=== PATIENT | male | born 1970 | race Asian ===

== ENCOUNTER 2020-06-14 00:12 | Outpatient (CLI) | payer OTHER, SELFPAY ==
[2020-06-14 17:38] LABS: SARS-CoV-2 RNA PCR Negative
== END 2020-06-14 00:13 | disposition home or self-care (01) ==
LOC: ANHCOVIDDT 00:12
PROVIDERS: Family Provider Emergency Medicine; PCP Family Medicine; Visit Provider Internal Medicine Gastroenterology
DX: Z01.812 Encounter for preprocedural laboratory examination (principal); Z20.822 Contact with and (suspected) exposure to COVID-19
CPT/HCPCS: C9803; U0003; U0005

== ENCOUNTER 2020-06-17 00:42 | Day surgery (SDC) | payer OTHER, SELFPAY ==
[2020-06-06 09:08] VITALS: BMI 23.8
[2020-06-17 11:32] VITALS: BP 122/88; PULSE 66; RESP 18; TEMP 36.8; O2SAT 98; BMI 23.1
[2020-06-17] MEDS: LACTATED RINGERS 1,000 ML 150 ML IV CONT (11:51)
--- NOTE | 2020-06-17 12:12 | WPDANESEPPF ---
Anes - Initial Pre Proc Eval Procedure: Operation Date: 06/17/20 12:30 Proposed Procedures p Screening Colonoscopy - Celio Davies DO Date/Time: 06/17/20 12:12 Surgeon: Celio Davies DO Pre Op Diagnosis: neoplasm screening Patient Data Age: 49 Gender: M Height: 1.75 m Weight: 71 kg Last Vital Signs Temp 36.8 C 06/17/20 11:32 Pulse 66 06/17/20 11:32 Resp 18 06/17/20 11:32 BP 122/88 06/17/20 11:32 Pulse Ox 98 06/17/20 11:32 Allergies Allergy/AdvReac Type Severity Reaction Status Date / Time No Known Allergies Allergy Verified 06/17/20 11:31 Home Medications Medication Instructions Recorded Confirmed Type No Home Medications 04/01/20 06/17/20 History Patient hx anesthesia problems: none Family hx anesthesia problems: none PMFSH Past Medical History Medical History (Updated 06/17/20 @ 07:31 by Lj Delgado DO) Hyperlipidemia Family History Family History (System 04/02/20 @ 14:24 by Mee Hilliard) Mother Family history of elevated blood lipids Social History Social History (System 04/02/20 @ 14:24 by Mee Hilliard) Smoking status: Never smoker Alcohol intake: current Drinks per week: 5 Living arrangements: with family Gender identity (if verbalized by the patient): Male Spiritual care concerns: No Anes - Eval Final PreProcedure Day of Procedure 06/17/20 12:12 Patient weight: normal Heart: regular rate and rhythm Lungs: clear to auscultation and normal air movement Airway: Mallampati scale class II Neurological: alert and oriented Last oral intake: >/= 8 hours ASA classification: II Emergent: no Anesthetic plan: proceed Anesthesia type and monitoring: general GIVS and standard monitoring Informed Consent: The patient's anesthetic plan and its attendant risks and benefits were discussed with the patient/family/POA. Questions were solicited and answers provided to the satisfaction of the patient/family/POA.
--- NOTE | 2020-06-17 12:18 | PM.IMHP ---
H&P: HPI History of Present Illness Date/Time: 06/17/20 12:18 Chief Complaint: Reason for visit is colonoscopy. Narrative: Reason for visit is colonoscopy. Impression: Screening colonoscopy. Hyperlipidemia. Recommendation: Colonoscopy. History: This very pleasant gentleman is negative GI review of systems. He is here for screening colonoscopy. Physical examination: General: very pleasant patient in no acute distress. HEENT: Head was normocephalic sclerae is clear mouth without masses neck was supple. Heart: Rate rhythm regular without S3 or S4. Lungs: CTA. Abdomen: Soft with no guarding or rigidity. Bowel sounds were active. Neurologic: Cranial nerves 2 through 12 intact. No focal defects. No clonus. Musculoskeletal system: Revealed no joint tenderness or swelling no muscle atrophy. Extremities: Reveal no significant edema. Skin: Warm and dry with normal turgor. Mental status: intact. Patient is alert and oriented. Review of Systems Review of Systems: All systems reviewed & are unremarkable except as noted in HPI and below PMFSH Past Medical History Medical History (Updated 06/17/20 @ 07:31 by Lj Delgado DO) Hyperlipidemia Family History Family History (System 04/02/20 @ 14:24 by Mee Hilliard) Mother Family history of elevated blood lipids Social History Social History (System 04/02/20 @ 14:24 by Mee Hilliard) Smoking status: Never smoker Alcohol intake: current Drinks per week: 5 Living arrangements: with family Gender identity (if verbalized by the patient): Male Spiritual care concerns: No Meds Home Medications and Allergies Home Medications Medication Instructions Recorded Confirmed Type No Home Medications 04/01/20 06/17/20 History Allergies Allergy/AdvReac Type Severity Reaction Status Date / Time No Known Allergies Allergy Verified 06/17/20 11:31 Vital Signs Vital Signs - 24 hr 06/17/20 11:32 Temperature 36.8 C Pulse Rate 66 Respiratory Rate 18 Blood Pressure 122/88 Pulse Oximetry 98
[2020-06-17] MEDS: SIMETHICONE ORAL SUSPENSION 20 MG/0.3 ML 30 ML BOTTLE 0.6 ML IRRIGATION (12:37)
[2020-06-17 12:50] VITALS: BP 110/73; PULSE 57; RESP 15; O2SAT 98
[2020-06-17 13:00] VITALS: BP 111/74; PULSE 52; RESP 13; O2SAT 97
== END 2020-06-17 13:22 | disposition home or self-care (01) ==
PROVIDERS: Family Provider Emergency Medicine; PCP Family Medicine; Visit Provider Internal Medicine Gastroenterology
PROC: 0DJD8ZZ Inspection of Lower Intestinal Tract, Via Natural or Artificial Opening Endoscopic (ICD-10-PCS; CPT 45378; principal; 2020-06-17 12:30)
DX: Z12.11 Encounter for screening for malignant neoplasm of colon (principal); K64.8 Other hemorrhoids; K63.5 Polyp of colon
CPT/HCPCS: 45380; 88305; C9803; J2704; J7120; U0003; U0005

== ENCOUNTER 2020-08-01 10:15 | Outpatient (CLI) | payer OTHER, SELFPAY | END 2020-08-01 10:16 | disposition home or self-care (01) | LOC: ANHCOVIDVC 10:15 | PROVIDERS: PCP Family Medicine | DX: Z23 Encounter for immunization (principal) | CPT/HCPCS: 0001A; 91300 ==

== ENCOUNTER 2020-08-22 10:17 | Outpatient (CLI) | payer OTHER, SELFPAY | END 2020-08-22 10:18 | disposition home or self-care (01) | LOC: ANHCOVIDVC 10:17 | PROVIDERS: PCP Family Medicine | DX: Z23 Encounter for immunization (principal) | CPT/HCPCS: 0002A; 91300 ==

== ENCOUNTER 2021-12-11 19:00 | Emergency (ER) | payer SELFPAY ==
--- NOTE | 2021-12-11 19:04 | PC.NURSE ---
patient walked out due to request to be placed right in room and their being a wait time, walked out without difficulty.
== END 2021-12-11 19:04 | disposition left against medical advice (07) ==
DX: Z53.21 Procedure and treatment not carried out due to patient leaving prior to being seen by health care provider (principal)
CPT/HCPCS: 99199